=== PATIENT | male | born 1985 | race Caucasian/White ===

== ENCOUNTER 2023-08-02 07:11 | Emergency (ER) | payer BC, SELFPAY ==
[2023-08-02 07:20] VITALS: BP 151/96
[2023-08-02 07:45] LABS: % Basophils 0.4 % (0-2); % Eosinophils 3.4 % (0-6); % Immature Granulocytes 0.4 % (0-0.5); % Lymphocytes 30.5 % (20.5-51.1); % Monocytes 8.3 % (1.7-9.3); Absolute Eosinophils 0.2 10^3/uL (0-0.7); Absolute Lymphocytes 1.6 10^3/uL (1.2-3.4); Absolute Monocytes 0.4 10^3/uL (0.1-0.6); Hematocrit 43.9 % (39.0-52.0); Mean Corp Hgb Conc. 36.4 g/dL (33.0-37.0); Mean Corpuscular Hgb 31.7 pg (27.0-31.0); Mean Corpuscular Volume 86.9 fL (80.0-94.0); Mean Platelet Volume 10.6 fL (7.4-10.4); Nucleated Red Blood Cells % 0 % (-); Platelet Count 163 10^3/uL (130-400); Red Blood Cell Count 5.05 10^6/uL (4.70-6.10); Red Cell Dist. Width 12.9 % (11.5-14.5); White Blood Cell Count 5.3 10^3/uL (4.8-10.8)
[2023-08-02 07:51] VITALS: BP 147/97
[2023-08-02 08:00] VITALS: BP 134/97
[2023-08-02 08:02] LABS: ALT (SGPT) 39 U/L (0-50); AST (SGOT) 34 U/L (17-59); Albumin 4.6 g/dl (3.5-5.0); Alkaline Phosphatase 66 U/L (38-126); Blood Urea Nitrogen 22 mg/dl (9-20); Calcium 9.5 mg/dl (8.4-10.2); Carbon Dioxide 26 mmol/L (22-30); Chloride 105 mmol/L (98-107); Glucose 82 mg/dl (70-99); Potassium 4.4 mmol/L (3.5-5.1); Sodium 139 mmol/L (135-145); Total Bilirubin 0.6 mg/dl (0.2-1.3); Total Protein 6.9 g/dl (6.3-8.2); eGFR > 60.00
[2023-08-02 08:13] LABS: Troponin I < 0.012 ng/ml
--- NOTE | 2023-08-02 08:25 | ED.GENMED ---
History of Present Illness
General
Chief Complaint: Chest Pain
Source: patient and spouse
Time Seen by Provider: 08/02/23 08:12
History of Present Illness
History of Present Illness:
38-year-old male presenting to the emergency department for evaluation of left-sided chest pain that began rather suddenly this morning around 6:30 AM while he was outside getting his truck ready to go to work. Patient reports that he was opening
the back of the truck door at the time when he felt a pain in the left side of his chest and left lateral rib area that he would describe as moderate, aching and worse with movement and palpation. Patient went inside and told his about his
symptoms to set him down and checked his blood pressure and noticed it was around 155/90 which is atypical for the patient. Due to the pain and elevated blood pressure patient's spouse decided to bring him to the ER for further evaluation. Patient
did take 2 Tylenol for the pain prior to arrival and notes that symptoms seem to be much improved now compared to earlier today. There were no other associated symptoms including nausea, vomiting, diaphoresis, shortness of breath, cough, fevers or
infectious symptoms, pleurisy, hemoptysis, abdominal pain or any other concerns. Denies any history of similar. Social history was noncontributory. Patient works for an [employer] and states he was outside a lot last week but does not believe
this is related. Family history was noted for paternal grandfather having cardiac disease
Past History
Past History
ED Past Medical History: Psychiatric (ADHD)
ED Past Surgical History: None
Social History
Tobacco: Non-smoker
Alcohol: None
Drug: None
Personal:
Living: with family
Employment: Employed
Review of Systems
Review of Systems
All Other Systems: ROS reviewed and negative except as documented in HPI and ROS
Phy Exam
Physical Exam
Physical Exam:
GENERAL: Alert , in no apparent distress
EYE: clear conjunctiva b/l
HEAD: NCAT
ENT: mmm.
CARDIAC: Regular rate and rhythm .
LUNGS: Clear breath sounds bilaterally, no acute respiratory distress, no wheezes/rales/rhonchi
Chest Wall: Reproducible tenderness around the fourth and fifth rib along the lateral clavicular line extending in towards the axilla
ABDOMEN: Soft, without focal tenderness, no r/g, no cvat
NEUROLOGICAL: Alert and oriented
SKIN: Warm and dry, skin intact.
MUSCULOSKELETAL: No edema, well perfused.
PSYCH: Normal and appropriate interaction.
Scores
Heart Failure Risk
Heart Failure Risk Score: Not Applicable
Heart Score for Chest Pain Patients
STEMI patient?: No
History: Slightly or Non-Suspicious
ECG: Normal
Age: </= 45 years
Risk Factors: No Risk Factors
Troponin: </= Normal Limit
Heart Score for Chest Pain Patients: 0
Heart Score Risk: 2.5% MACE over next 6 weeks
Withdrawal Assessment of Alcohol
Withdrawal Assessment Completed?: Not applicable
Course
Orders/Labs/Results
Orders:
Orders
08/02/23 07:23
Electrocardiogram (*1) Urgent
Reason for Study: Chest Pain
EKG- Treatment ONCE
08/02/23 07:36
Complete Blood Count/With Diff Urgent
Comprehensive Metabolic Panel Urgent
Troponin I Urgent
08/02/23 08:05
Chest [CR Chest - 2 Views ] Urgent
Comment:
Reason For Exam: chest pain
08/02/23 10:16
Troponin I Urgent
Abnormal Lab Results
08/02/23
07:36
MCH 31.7 H pg
(27.0-31.0)
MPV 10.6 H fL
(7.4-10.4)
BUN 22 H mg/dl
(9-20)
08/02/23 07:36
08/02/23 07:36
Vital Signs
Initial and Last Documented VS:
Initial Vital Signs
Temp Pulse Resp BP Pulse Ox
98.5 F 79 20 151/96 99
08/02/23 07:20 08/02/23 07:20 08/02/23 07:20 08/02/23 07:20 08/02/23 07:20
Last Documented Vital Signs
Temp Pulse Resp BP Pulse Ox
98.5 F 67 18 159/91 97
08/02/23 07:20 08/02/23 10:15 08/02/23 10:15 08/02/23 10:00 08/02/23 08:00
MDM/Problems Addressed
Differential Diagnosis Includes:
Musculoskeletal chest pain, less concern for angina, minimal concern for hypertensive urgency/emergency
MDM/Problems Addressed:
38-year-old male presenting to the emergency department for evaluation of left-sided chest pain that began earlier this morning, rather suddenly but no other associated symptoms. Spouse took patient's blood pressure and noted to be 155/90. While
this is an elevated blood pressure I would not expect this to have caused if been hypertensive urgency/emergency. Patient's blood pressure is also noted to be improved at time of my evaluation. Patient had a nonischemic EKG in triage and labs that
were initiated are unremarkable and show a negative troponin. Chest x-ray pending. Based off patient's pain being clearly reproducible with movement and palpation suspect a muscular etiology is most likely. Will repeat a 3-hour troponin. As long
as patient's symptoms remain improving combined with 2 negative troponins I do think it is reasonable for patient with no risk factors to be discharged home and have outpatient follow-up.
*Pulse Oximetry
Patient hypoxic: no
*EKG
Interpreted by ED Provider?: Yes
Interpretation: normal
Comparison EKG: no comparison EKG present
Heart Rate: 72
Rate: normal
Rhythm: sinus
[place]: normal axis
Ischemia: no ischemia
*[place] Interpretation
Rate: normal
Rhythm: sinus
*Critical Care Note
Total Time (30-74mins, 75-104mins- exclusive of procedures): Not Applicable
Comment
Comment:
10 AM: Patient noting continued improved pain along the left anterolateral rib area and chest. His blood pressure did elevate a little bit to around 150/90 again however I am not suspicious for hypertensive urgency. Repeat troponin being drawn.
If negative patient will be stable for discharge home and outpatient management
Patient Management
Escalation/DeEscalation of care consider admission/obs:
Repeat troponin negative. Patient with improved symptoms since arrival. Still noted to have a slightly elevated blood pressure and encouraged close follow-up primary care provider. Aware of return precautions to ER. Stable for discharge home.
ED Attending Note
-
Portions of this chart may have been created with voice recognition software.� Occasional wrong word or��sound alike� substitutions may have occurred due to the inherent limitations of voice recognition software.
Discharge Plan
Departure
Patient Disposition: Home (Routine Discharge)
Date of Disposition: 08/02/23
Time of Disposition: 10:49
Patient with high blood pressure during this ER visit?: Yes
Discharge Problem:
Chest pain, Elevated blood pressure reading
Instructions: Chest Pain That Is Not Caused by the Heart (DC)
Prescriptions:
No Action
dicyclomine 20 MG tablet
20 mg PO QID PRN (Reason: abd cramp)
Referrals:
Carolina Treviño CRNP [Family Provider] -
Stand Alone Forms: Return to Work
Interventions
Interventions:
*Risk Screen - Suicide Last Done: 08/02/23 07:20
*General Assessment Last Done: 08/02/23 07:20
*Neglect/Abuse Screening Last Done: 08/02/23 07:20
ED- Fall Risk Assessment Last Done: 08/02/23 08:02
*Nursing Disposition Last Done: 08/02/23 10:58
ED- Cardiac Assessment Last Done: 08/02/23 08:02
Discharge Date and Time
Discharge Date/Time: 08/02/23 10:58
Print Language: BARBAD[place]
[2023-08-02 09:00] VITALS: BP 136/91
[2023-08-02 10:00] VITALS: BP 159/91
[2023-08-02 10:46] LABS: Troponin I < 0.012 ng/ml
== END 2023-08-02 10:58 | disposition home or self-care (01) ==
LOC: EMR 07:11
PROVIDERS: Emergency Medicine; Physician Assistant Medical; EMERGENCY PHYSICIAN Emergency Medicine; FAMILY PHYSICIAN Nurse Practitioner
DX: R07.89 Other chest pain (principal); R03.0 Elevated blood-pressure reading, without diagnosis of hypertension; F90.9 Attention-deficit hyperactivity disorder, unspecified type; Z88.8 Allergy status to other drugs, medicaments and biological substances
CPT/HCPCS: 99283; 71046; 80053; 84484; 85025; 93005